=== PATIENT | male | born 1945 | race Caucasian/White ===

== ENCOUNTER 2019-09-14 16:41 | Observation (INO) ==
[2019-09-14 17:08] LABS: Microscopic, Urine URINE MICROSCOPIC (MICROSCOPIC)
[2019-09-14 17:10] LABS: Basophils % 0.7 % (0.1-2.0); Eosinophils % 0.7 % (0.1-12.0); Hematocrit 43.4 % (42.0-52.0); Hemoglobin 14.5 g/dL (14.1-18.0); Lymphocytes # 1.5 K/mm3 (0.7-4.5); Lymphocytes % 33.3 % (10-50); Mean Corpuscular HGB Conc 33.5 g/dL (31.8-35.4); Mean Corpuscular Volume 95.3 fl (80-94); Mean Platelet Volume 8.4 fl (7.4-10.4); Monocytes # 0.2 K/mm3 (0.1-1.0); Monocytes % 5.1 % (1.7-9.3); Neutrophils # 2.6 K/mm3 (1.8-7.8); Neutrophils % 60.2 % (37.0-80.0); Platelet Count 164 K/mm3 (142-424); Red Blood Count 4.55 M/mm3 (4.60-6.20); Red Cell Distribution Width 12.7 % (11.5-17.5); White Blood Count 4.4 K/mm3 (4.8-10.8)
[2019-09-14 17:11] LABS: Appearance,Urine CLEAR (Clear); Bilirubin,Urine Negative (Negative); Blood, Urine Negative (Negative); Color,Urine YELLOW (Yellow); Glucose,Urine (UA) 3+ (Negative); Ketones,Urine TRACE (Negative); Leukocyte Esterase,Urine Negative (Negative); Protein,Urine Negative (Negative); Specific Gravity, Urine 1.025 (1.005-1.030); Urobilinogen,Urine 0.2 EU/dl (0.2)
[2019-09-14 17:18] LABS: Acetone, Serum (Rapid) None Detected (None Detect)
[2019-09-14 17:23] LABS: Alanine Aminotransferase 53 U/L (12-78); Albumin Level 3.1 gm/dL (3.4-5.0); Albumin/Globulin Ratio 0.9 (1.1-1.8); Alkaline Phosphatase 71 U/L (46-116); Anion Gap 13.6 mEq/L (5-15); Aspartate Amino Transferase 30 U/L (15-37); Bilirubin,Total 0.8 mg/dL (0.2-1.0); Blood Urea Nitrogen 17 mg/dL (7-18); Calcium 8.8 mg/dL (8.5-10.1); Carbon Dioxide 27 mmol/L (21.0-32.0); Chloride 100 mmol/L (98-107); Globulin 3.6 gm/dl (1.3-3.2); Glucose 393 mg/dL (74-106); Sodium 136 mmol/L (136-145); Total Protein,Serum 6.7 gm/dL (6.4-8.2)
--- NOTE | 2019-09-14 17:58 | Emergency Department Note ---
ED Disposition Clinical Impression: Acute bronchospasm, Influenza B Acute bronchitis Qualifiers: Bronchitis organism: unspecified organism Qualified Code(s): J20.9 - Acute bronchitis, unspecified Hyperglycemia due to type 2 diabetes mellitus Qualifiers: Diabetes mellitus care home insulin use: without ferry terminal supervisor use Qualified Code(s): E11.65 - Type 2 diabetes mellitus with hyperglycemia Disposition: Admitted as Observation Condition on Discharge: Fair Referrals: Lucien Healy [Primary Care Provider] - - Critical Care Critical Care Time: No Attestation: On 09/14/19, the high probability of a clinically significant, sudden or life threatening deterioration of the following system(s) required my full and direct attention, intervention and personal management. The time I documented below is in addition to time spent performing reported procedures but includes the following listed in this critical care notation. Medical Decision Making - [place] Inquiry Pt receiving controlled substance: No Vital Signs: 09/14/19 16:53 Temperature 98 F Temperature Source Oral Pulse Rate [Left Radial] 120 H Respiratory Rate 18 Blood Pressure [Right Arm] 154/100 H Blood Pressure Mean [Right Arm] 118 Blood Pressure Position [Right Arm] Sitting 02 Sat by Pulse Oximetry 93 L Oxygen Delivery Method Room Air - Lab Data Lab Results 09/14/19 16:45: Urine Color Yellow, Urine Appearance Clear, Urine pH 5.0, Ur Specific [place] 1.025, Urine Protein Negative, Urine Glucose (UA) 3+, Urine Ketones Trace, Urine Blood Negative, Urine Nitrate Negative, Urine Bilirubin Negative, Urine Urobilinogen 0.2, Ur Leukocyte Esterase Negative, Urine RBC None, Urine WBC None, Ur Squamous Epith Cells None, Urine Bacteria None 09/14/19 16:55: WBC 4.4 L, RBC 4.55 L, Hgb 14.5, Hct 43.4, MCV 95.3 H, MCH 31.9 H, MCHC 33.5, RDW 12.7, Plt Count 164, MPV 8.4, Neut % (Auto) 60.2, Lymph % (Auto) 33.3, [place] % (Auto) 5.1, Eos % (Auto) 0.7, Baso % (Auto) 0.7, Neut # (Auto) 2.6, Lymph # (Auto) 1.5, [place] # (Auto) 0.2, Eos # (Auto) 0.0, Baso # (Auto) 0.0 09/14/19 16:55: Sodium 136, Potassium 4.6, Chloride 100, Carbon Dioxide 27, Anion Gap 13.6, BUN 17, Creatinine 1.19, Estimated Creat Clear 69, Estimated GFR 60, Est GFR ( Amer) 72, Glucose 393 H, Calcium 8.8, Total Bilirubin 0.8, AST 30, ALT 53, Alkaline Phosphatase 71, Troponin I < 0.02, Total Protein 6.7, Albumin 3.1 L, Globulin 3.6 H, Albumin/Globulin Ratio 0.9 L, Acetone Level None detected Result diagrams: 09/14/19 16:55 09/14/19 16:55 Orders (Tests/Meds): ED MEDICATIONS Generic Name Dose Route Start Last Admin Trade Name Freq PRN Reason Stop Dose Admin Sodium Chloride 1,000 mls @ 999 mls/hr 09/14/19 17:00 09/14/19 17:00 Sod Chlor 0.9% 1000ml Bag IV 09/14/19 18:00 999 mls/hr .Q1H1M LEON Administration Ceftriaxone Sodium 1 gm/ 50 mls @ 100 mls/hr 09/14/19 18:15 Sodium Chloride IV 09/28/19 18:14 Q24H LEON Protocol Azithromycin 500 mg/ Sodium 250 mls @ 250 mls/hr 09/14/19 18:15 Chloride IV 09/28/19 18:14 Q24H LEON Protocol Discontinued Medications Generic Name Dose Route Start Last Admin Trade Name Freq PRN Reason Stop Dose Admin Albuterol/Ipratropium 3 ml 09/14/19 18:12 Duoneb 3ml Neb IH 09/14/19 18:13 ONCE ONE Insulin Human Lispro 10 unit 09/14/19 18:14 Humalog 100 Units/Ml 3ml Vial (Ssi) SQ 09/14/19 18:15 ONCE ONE Methylprednisolone Sodium Succinate 125 mg 09/14/19 18:12 Solu-Medrol 125mg/2ml Vial IV 09/14/19 18:13 ONCE ONE ORDERS Category Date Time Status XR chest 2V Stat Exams 09/14/19 16:59 Taken Troponin I Q3H Lab 09/14/19 20:00 Ordered Troponin I Q3H Lab 09/14/19 23:00 Ordered Blood Culture Stat Micro 09/14/19 18:18 Ordered - ECG Data Tracing #1 EKG interpreted by Aaron Kinney MD: Rhythm: sinus tachycardia Rate: 101 [place]: normal Ectopy: none Conduction: normal ST Segment Changes: none T Wave Changes: none Q Waves: none Poor R wave progression Low voltage QRS Incomplete right bundle branch block Baseline artifact present, but I consider the EKG adequate for accurate interpretation. No prior EKGs available for comparison. - Physician Consults Physician Consulted: Alyce Guallpa NP for Dr. Garcia Time: 18:21 Reason -: Admission Comment/Response: Agrees to admit the patient to the hospital. We discussed the patient's clinical information, including history, exam, laboratory and radiology results and ED course. Per hospital procedure, I will write temporary bridge inpatient orders on the patient. Specific orders requested by the admitting physician: No specific requests General Adult HPI - General Chief complaint: Weakness Stated complaint: Dx w/flu, sugar is elevated Time Seen by Provider: 09/14/19 18:00 Mode of Arrival: Ambulatory Limitations: No Limitations Description of Symptoms (Recalled from ER Triage Doc. by RN): TO ED PER PVT CAR WITH C/O GENERALIZED WEAKNESS, COUGH PT STATES DX WITH FLU B 09/05 AND HAS HAD NO IMPROVEMENT SINCE. PT STATES BLOOD SUGARS HAVE BEEN 300-500 STATES PCP JUST RECENTLY PLACED HIM ON "PILLS" FOR DM - History of Present Illness HPI narrative: Complains of cough, congestion, shortness of breath, weakness, elevated blood sugar. States that he got sick on 09/04/2019. Saw his primary care doctor on 09/05/2019 and had a positive nasal swab for influenza B. Started on Tamiflu and steroids. He saw his family doctor the next Monday for routine physical. Prior to that he had been diagnosed with borderline diabetes, but his blood sugar on that date was greater than 500. He was started on metformin. Since then his flu symptoms have not improved. He last saw his primary care doctor on 09/09/2019 and had a chest x-ray that was negative. He is using an albuterol inhaler and Mucinex and still has shortness of breath congested cough, wheezing. His blood sugars still running in the 300s and 400s. - Related Data Allergies Allergy/AdvReac Type Severity Reaction Status Date / Time No Known Allergies Allergy Verified 09/14/19 16:58 [facility] History - Hepatitis A Screen Drug use history?: No High risk sexual behaviors?: No History of sexually transmitted infection?: No Currently employed?: No Childcare worker?: No Do you have indoor plumbing?: Yes Do you have electricity?: Yes Attestation statement:: This patient has been screened for Hepatitis A risk factors. I have reviewed the patient's past medical history: Yes - Social History Alcohol Intake: never Occupational Status: other ROS Obtained: Yes All systems reviewed & no additional complaints - Constitutional Constitutional: Reports fatigue, Reports weakness - ENT Ears, Nose, Mouth, and Throat: Reports nasal discharge - Cardiovascular Cardiovascular: Denies chest pain - Respiratory Respiratory: Yes cough, Yes dyspnea, Yes dyspnea on exertion - Gastrointestinal Gastrointestingal: Denies: abdominal pain, vomiting Physical Exam - General General appearance: alert, in no apparent distress - Head Head exam: atraumatic, normocephalic - Eye Eye exam: Present: normal appearance, EOMI - ENT ENT exam: Present: normal oropharynx, mucous membranes moist - Neck Neck exam: Present: normal inspection, trachea midline - Chest Chest inspection: Present: normal inspection, symmetric chest wall rise - Respiratory Respiratory exam: Present: wheezes (Diffuse) - Cardiovascular Cardiovascular exam: Present: normal rhythm, tachycardia, normal heart sounds - Abdominal Exam Abdominal exam: Present: soft, normal bowel sounds. Absent: distention, tenderness - Extremities Exam Extremities exam: Present: normal inspection - Neurological Exam Neurological exam: Present: alert, oriented X3 - Psychiatric Psychiatric exam: Present: normal affect, normal mood - Skin Skin exam: Present: warm, dry
--- NOTE | 2019-09-14 21:48 | History & Physical Report ---
*Admission Date: 09/14/19 *Chief complaint: soa *History of present illness: 74 yr old male presented to ed with complains of cough, congestion, shortness of breath, weakness, elevated blood sugar. States that he started to become sick on 09/04/2019, seen primary care doctor on 09/05/2019 and had a positive nasal swab for influenza B. Started on Tamiflu and steroids. Pt states he was told he was a borderline diabetic but when he had his physical a week after being dx with flu b his glucose was greater than 500. He was started on metformin by pcp. Pt states he seen his primary care doctor on 09/09/2019 and had a chest x- ray that was negative. He is using an albuterol inhaler and Mucinex and still has shortness of breath congested cough, wheezing. Pt admitted for shortness of breath, and hyperglycemia. [facility] History I have reviewed the patient's past medical history: Yes Medical History: Reports:: Diabetes Mellitus Type 2, Hyperlipidemia, Hypertension Denies:: Cancer, MRSA *Have you ever received a pneumonia vaccine?: Yes *Have you received a flu vaccine this season?: Yes Other Surgeries: Yes: Appendectomy Amputation: No - *Social History Educational Level: Completed High School Smoking Status: Never smoker Alcohol Intake: never *Occupational Status:: retired *Travel in the last 8 weeks: None Family Hx:: Cancer, Diabetes, Hyperlipidemia, Hypertension, Stroke Review of Systems - Constitutional Reports chills, Reports fatigue, Reports weakness, Denies body ache(s), Denies malaise - Eyes Denies change in vision - ENT Reports nasal congestion, Reports nasal discharge, Reports sinus pain - *Cardiovascular Reports shortness of breath with activity, Denies chest pain with activity - *Respiratory Reports change in phlegm color, Reports chest congestion, Reports cough, Reports shortness of breath, Reports shortness of breath with activity, Reports pain with cough - *Gastrointestinal Denies nausea - *Genitourinary Denies blood in urine, Denies urinary hesitancy - *Musculoskeletal Denies decreased muscle mass, Denies stiffness - Integumentary/Breasts Denies rash - *Neurologic Reports weakness, Denies abnormal movements - Psychiatric Denies anxiety - Endocrine Denies flushing - Hematologic/Lymphatic Denies enlarged lymph nodes - Allergic/Immunologic Denies lip swelling Meds Home Medications Medication Instructions Recorded Confirmed Type Albuterol Sulfate [Albuterol HFA 2 puffs IH Q4HP PRN 09/14/19 09/14/19 History Inhaler] Alfuzosin HCl [Alfuzosin HCl ER] 10 mg PO DAILY 09/14/19 09/14/19 History Amlodipine Bes/Olmesartan Med 1 tab PO DAILY 09/14/19 09/15/19 History [Amlodipine-Olmesartan 5-40 mg] Aspirin [Aspir 81] 81 mg PO DAILY 09/14/19 09/14/19 History Atorvastatin Calcium [Atorvastatin 10 mg PO HS 09/14/19 09/14/19 History 10mg Tab] Dutasteride 0.5 mg PO DAILY 09/14/19 09/14/19 History Fluticasone/Vilanterol [Breo 1 puff IH DAILY 09/14/19 09/15/19 History Ellipta 100-25 Mcg INH] Metformin HCl [Metformin HCl ER] 2,000 mg PO QPMWM 09/14/19 09/15/19 History guaiFENesin [Mucinex] 1,200 mg PO DAILYP PRN 09/14/19 09/15/19 History Desloratadine 5 mg PO DAILYP PRN 09/15/19 09/15/19 History Allergies Allergy/AdvReac Type Severity Reaction Status Date / Time No Known Allergies Allergy Verified 09/14/19 16:58 Exam Vital signs and Labs for Last 24 Hours: Temp Pulse Resp BP Pulse Ox 98 F 78 16 126/66 92 L 09/14/19 20:25 09/14/19 20:55 09/14/19 20:25 09/14/19 20:25 09/14/19 20:00 Laboratory Results - last 24 hr 09/14/19 16:45: Urine Color Yellow, Urine Appearance Clear, Urine pH 5.0, Ur Specific [place] 1.025, Urine Protein Negative, Urine Glucose (UA) 3+, Urine Ketones Trace, Urine Blood Negative, Urine Nitrate Negative, Urine Bilirubin Negative, Urine Urobilinogen 0.2, Ur Leukocyte Esterase Negative, Urine RBC None, Urine WBC None, Ur Squamous Epith Cells None, Urine Bacteria None 09/14/19 16:55: WBC 4.4 L, RBC 4.55 L, Hgb 14.5, Hct 43.4, MCV 95.3 H, MCH 31.9 H, MCHC 33.5, RDW 12.7, Plt Count 164, MPV 8.4, Neut % (Auto) 60.2, Lymph % (Auto) 33.3, [place] % (Auto) 5.1, Eos % (Auto) 0.7, Baso % (Auto) 0.7, Neut # (Auto) 2.6, Lymph # (Auto) 1.5, [place] # (Auto) 0.2, Eos # (Auto) 0.0, Baso # (Auto) 0.0 09/14/19 16:55: Sodium 136, Potassium 4.6, Chloride 100, Carbon Dioxide 27, Anion Gap 13.6, BUN 17, Creatinine 1.19, Estimated Creat Clear 69, Estimated GFR 60, Est GFR ( Amer) 72, Glucose 393 H, Calcium 8.8, Total Bilirubin 0.8, AST 30, ALT 53, Alkaline Phosphatase 71, Troponin I < 0.02, Total Protein 6.7, Albumin 3.1 L, Globulin 3.6 H, Albumin/Globulin Ratio 0.9 L, Acetone Level None detected 09/14/19 19:40: Troponin I < 0.02 09/14/19 20:49: POC Glucose 260 H I & O for Last 24 hours: Intake & Output 09/12/19 09/13/19 09/14/19 09/15/19 11:59 11:59 11:59 11:59 Weight 201 lb 3 oz - Constitutional no acute distress, thin - *Routine HEENT Exam Head: Present: normocephalic Eye: Present: PERRL ENT: Present: mucous membranes moist - *Routine Neck Exam Present: supple. Absent: lymphadenopathy - *Routine Respiratory Exam Present: rhonchi, wheezes - *Routine Cardiovascular Exam Present: RRR - *Routine Abdominal Exam Present: soft, normoactive bowel sounds. Absent: tenderness - *Routine Extremities Exam Present: full ROM, pulses intact, normal capillary refill - *Routine Skin Exam Present: intact, warm. Absent: rash - *Routine Neurological Exam Present: alert, oriented X3 - Routine Psychiatric Exam Present: normal affect Assessment and Plan (1) Acute bronchitis Current visit: Yes Status: Acute Qualifiers: Bronchitis organism: unspecified organism Qualified Code(s): J20.9 - Acute bronchitis, unspecified Category: Medical Code(s): J20.9 - Acute bronchitis, unspecified steroids and neb treatments antibiotics (2) Acute bronchospasm Current visit: Yes Status: Acute Category: Medical Code(s): J98.01 - Acute bronchospasm (3) Hyperglycemia due to type 2 diabetes mellitus Current visit: Yes Status: Acute Qualifiers: Diabetes mellitus enrollment management manager insulin use: without custodial use Qualified Code(s): E11.65 - Type 2 diabetes mellitus with hyperglycemia Category: Medical Code(s): E11.65 - Type 2 diabetes mellitus with hyperglycemia sliding scale insulin while on steroids (4) Influenza B Current visit: Yes Status: Acute Category: Medical Code(s): J10.1 - Influenza due to other identified influenza virus with other respiratory manifestations - Assessment and plan all Dx Assessment and Plan for all problems:: иван to round later today, all orders per иван
[2019-09-15 07:19] LABS: Anion Gap 14.1 mEq/L (5-15); Calcium 8.3 mg/dL (8.5-10.1)
--- NOTE | 2019-09-15 08:12 | Pharmacy Consult Notes ---
[facility] Pharmacy VTE Monitoring - Patient Demographics Admission date: 09/14/19 Report Date: 09/15/19 Time: 08:12 Allergies/Adverse Reactions: Patient Allergies No Known Allergies Allergy (Verified 09/14/19 16:58) Height: 1.78 m Weight: 91.257 kg Patient Problems: Current Active Problems Acute bronchospasm (Acute) Acute bronchitis (Acute) Influenza B (Acute) Hyperglycemia due to type 2 diabetes mellitus (Acute) - VTE Risk Labs: VTE Related Lab Results Hgb 14.5 g/dL (14.1-18.0) 09/14/19 16:55 Hct 43.4 % (42.0-52.0) 09/14/19 16:55 Plt Count 164 K/mm3 (142-424) 09/14/19 16:55 BUN 15 mg/dL (7-18) 09/15/19 06:30 Creatinine 1.21 mg/dL (0.70-1.30) 09/15/19 06:30 Estimated Creat Clear 68 mL/min (50-200) 09/15/19 06:30 VTE Score: 1 VTE Risk Level: Very Low Risk - Prophylaxis VTE Prophylaxis Ordered?: Yes Types of VTE Prophylaxis: TEDS Knee High Location of Applied Device: Bilateral Lower Extremeties - VTE Diagnosis Confirmed Treatment or plan recommended: Continue Current Treatment
--- NOTE | 2019-09-15 10:58 | Progress Note ---
Internal Medicine - PN: Subj *Date: 09/16/19 *Time: 09:14 Interval history: doing better but still weak -discussed home meds Exam Vital signs and Labs for Last 24 Hours: Temp Pulse Resp BP Pulse Ox 98.6 F 77 17 125/77 95 09/15/19 07:24 09/15/19 10:23 09/15/19 07:24 09/15/19 07:24 09/15/19 07:24 Laboratory Results - last 24 hr 09/14/19 16:45: Urine Color Yellow, Urine Appearance Clear, Urine pH 5.0, Ur Specific [place] 1.025, Urine Protein Negative, Urine Glucose (UA) 3+, Urine Ketones Trace, Urine Blood Negative, Urine Nitrate Negative, Urine Bilirubin Negative, Urine Urobilinogen 0.2, Ur Leukocyte Esterase Negative, Urine RBC None, Urine WBC None, Ur Squamous Epith Cells None, Urine Bacteria None 09/14/19 16:55: WBC 4.4 L, RBC 4.55 L, Hgb 14.5, Hct 43.4, MCV 95.3 H, MCH 31.9 H, MCHC 33.5, RDW 12.7, Plt Count 164, MPV 8.4, Neut % (Auto) 60.2, Lymph % (Auto) 33.3, [place] % (Auto) 5.1, Eos % (Auto) 0.7, Baso % (Auto) 0.7, Neut # (Auto) 2.6, Lymph # (Auto) 1.5, [place] # (Auto) 0.2, Eos # (Auto) 0.0, Baso # (Auto) 0.0 09/14/19 16:55: Sodium 136, Potassium 4.6, Chloride 100, Carbon Dioxide 27, Anion Gap 13.6, BUN 17, Creatinine 1.19, Estimated Creat Clear 69, Estimated GFR 60, Est GFR ( Amer) 72, Glucose 393 H, Calcium 8.8, Total Bilirubin 0.8, AST 30, ALT 53, Alkaline Phosphatase 71, Troponin I < 0.02, Total Protein 6.7, Albumin 3.1 L, Globulin 3.6 H, Albumin/Globulin Ratio 0.9 L, Acetone Level None detected 09/14/19 19:40: Troponin I < 0.02 09/14/19 20:49: POC Glucose 260 H 09/15/19 06:05: POC Glucose 324 H* 09/15/19 06:30: Sodium 137, Potassium 4.1, Chloride 101, Carbon Dioxide 26, Anion Gap 14.1, BUN 15, Creatinine 1.21, Estimated Creat Clear 68, Estimated GFR 58 L, Est GFR ( Amer) 71, Glucose 337 H, Calcium 8.3 L I & O for Last 24 hours: Intake & Output 09/12/19 09/13/19 09/14/19 09/15/19 11:59 11:59 11:59 11:59 Intake Total 683 / 683 Balance 683 / 683 Weight 201 lb 3 oz Microbiology Reports for the Last 24 Hours: Microbiology 09/14/19 21:20 Sputum - Expectorated Sputum Gram Stain - Final 09/14/19 21:20 Sputum - Expectorated Sputum Sputum Culture - Preliminary - Constitutional no acute distress - *Routine HEENT Exam Head: Present: normocephalic Eye: Present: EOMI, PERRL ENT: Present: mucous membranes dry - *Routine Neck Exam Present: supple - *Routine Respiratory Exam Present: rhonchi - *Routine Cardiovascular Exam Present: RRR - *Routine Abdominal Exam Present: soft - *Routine Extremities Exam Absent: tenderness - *Routine Skin Exam Present: intact - *Routine Neurological Exam Present: alert, CN II-XII intact - Routine Psychiatric Exam Present: normal affect Assessment and Plan (1) Acute bronchitis Current visit: Yes Status: Acute Qualifiers: Bronchitis organism: unspecified organism Qualified Code(s): J20.9 - Acute bronchitis, unspecified Category: Medical Code(s): J20.9 - Acute bronchitis, unspecified (2) Hyperglycemia due to type 2 diabetes mellitus Problem details: restart home meds Current visit: Yes Status: Acute Qualifiers: Diabetes mellitus longterm insulin use: without termite inspector use Qualified Code(s): E11.65 - Type 2 diabetes mellitus with hyperglycemia Category: Medical Code(s): E11.65 - Type 2 diabetes mellitus with hyperglycemia
[2019-09-16 08:35] LABS: Basophils % 0.2 % (0.1-2.0); Eosinophils % 0.1 % (0.1-12.0); Hematocrit 38.7 % (42.0-52.0); Hemoglobin 12.5 g/dL (14.1-18.0); Lymphocytes # 1.4 K/mm3 (0.7-4.5); Lymphocytes % 18.1 % (10-50); Mean Corpuscular HGB Conc 32.4 g/dL (31.8-35.4); Mean Corpuscular Volume 96.2 fl (80-94); Mean Platelet Volume 9.6 fl (7.4-10.4); Monocytes # 0.2 K/mm3 (0.1-1.0); Monocytes % 3.1 % (1.7-9.3); Neutrophils % 78.5 % (37.0-80.0); Platelet Count 177 K/mm3 (142-424); Red Blood Count 4.02 M/mm3 (4.60-6.20); White Blood Count 7.6 K/mm3 (4.8-10.8)
[2019-09-16 08:49] LABS: Albumin Level 2.5 gm/dL (3.4-5.0); Albumin/Globulin Ratio 0.8 (1.1-1.8); Anion Gap 11.1 mEq/L (5-15); Bilirubin,Total 0.4 mg/dL (0.2-1.0); Calcium 8.1 mg/dL (8.5-10.1); Total Protein,Serum 5.5 gm/dL (6.4-8.2)
--- NOTE | 2019-09-16 09:02 | Discharge Summary ---
General - General Admission date:: 09/14/19 Discharge date: 09/16/19 HPI HPI: 74 yr old male presented to ed with complains of cough, congestion, shortness of breath, weakness, elevated blood sugar. States that he started to become sick on 09/04/2019, seen primary care doctor on 09/05/2019 and had a positive nasal swab for influenza B. Started on Tamiflu and steroids. Pt states he was told he was a borderline diabetic but when he had his physical a week after being dx with flu b his glucose was greater than 500. He was started on metformin by pcp. Pt states he seen his primary care doctor on 09/09/2019 and had a chest x- ray that was negative. He is using an albuterol inhaler and Mucinex and still has shortness of breath congested cough, wheezing. Pt admitted for shortness of breath, and hyperglycemia. Hospital Course Hospital Course: Laboratory Results - last 24 hr 09/15/19 11:57: POC Glucose 394 H* 09/15/19 16:41: POC Glucose 358 H* 09/15/19 21:31: POC Glucose 263 H 09/16/19 05:59: POC Glucose 229 H 09/16/19 08:25: WBC 7.6 D, RBC 4.02 L, Hgb 12.5 L, Hct 38.7 L, MCV 96.2 H, MCH 31.1, MCHC 32.4, RDW 13.0, Plt Count 177, MPV 9.6, Neut % (Auto) 78.5, Lymph % (Auto) 18.1, Kemper % (Auto) 3.1, Eos % (Auto) 0.1, Baso % (Auto) 0.2, Neut # (Auto) 6.0, Lymph # (Auto) 1.4, Kemper # (Auto) 0.2, Eos # (Auto) 0.0, Baso # (Auto) 0.0 09/16/19 08:25: Sodium 140, Potassium 4.1, Chloride 104, Carbon Dioxide 29, Anion Gap 11.1, BUN 17, Creatinine 1.00, Estimated Creat Clear 83, Estimated GFR 73, Est GFR ( Amer) 88 D, Glucose 251 H, Calcium 8.1 L, Total Bilirubin 0.4, AST 20 D, ALT 43, Alkaline Phosphatase 49, Total Protein 5.5 L, Albumin 2.5 L, Globulin 3.0, Albumin/Globulin Ratio 0.8 L Microbiology 09/14/19 18:25 Blood Culture - Preliminary Blood 09/14/19 18:25 Blood Culture - Preliminary Blood 09/14/19 21:20 Gram Stain - Final Sputum - Expectorated Sputum Sputum Culture - Preliminary Vital Signs Temp Pulse Pulse Resp BP Pulse Ox 09/16/19 08:00 97.9 F 90 18 114/61 96 09/16/19 06:15 70 92 L 09/16/19 04:00 98.1 F 79 19 127/75 96 chest x ray:IMPRESSION: No acute finding. There is some mild nodularity of the right hilum inferiorly as described above. Follow-up suggested to confirm stability will dc home on antibiotics/breo and follow up with dr healy this week. Objective Vital signs: Temp Pulse Resp BP Pulse Ox 97.9 F 90 18 114/61 96 09/16/19 08:00 09/16/19 08:00 09/16/19 08:00 09/16/19 08:00 09/16/19 08:00 no acute distress - *Routine HEENT Exam Head: Present: normocephalic Eye: Present: PERRL ENT: Present: mucous membranes moist - *Routine Respiratory Exam Present: wheezes - *Routine Cardiovascular Exam Present: RRR - *Routine Abdominal Exam Present: soft, normoactive bowel sounds. Absent: tenderness - *Routine Extremities Exam Present: full ROM - *Routine Skin Exam Present: intact - *Routine Neurological Exam Present: alert, oriented X3 - Routine Psychiatric Exam Present: normal affect Results Labs on day of discharge: Labs from last 24 hours 09/16/19 09/16/19 09/16/19 08:25 08:25 05:59 WBC 7.6 D RBC 4.02 L Hgb 12.5 L Hct 38.7 L MCV 96.2 H MCH 31.1 MCHC 32.4 RDW 13.0 Plt Count 177 MPV 9.6 Neut % (Auto) 78.5 Lymph % (Auto) 18.1 Kemper % (Auto) 3.1 Eos % (Auto) 0.1 Baso % (Auto) 0.2 Neut # (Auto) 6.0 Lymph # (Auto) 1.4 Kemper # (Auto) 0.2 Eos # (Auto) 0.0 Baso # (Auto) 0.0 Sodium 140 Potassium 4.1 Chloride 104 Carbon Dioxide 29 Anion Gap 11.1 BUN 17 Creatinine 1.00 Estimated Creat Clear 83 Estimated GFR 73 Est GFR ( Amer) 88 D Glucose 251 H POC Glucose 229 H Calcium 8.1 L Total Bilirubin 0.4 AST 20 D ALT 43 Alkaline Phosphatase 49 Total Protein 5.5 L Albumin 2.5 L Globulin 3.0 Albumin/Globulin Ratio 0.8 L 09/15/19 09/15/19 09/15/19 21:31 16:41 11:57 WBC RBC Hgb Hct MCV MCH MCHC RDW Plt Count MPV Neut % (Auto) Lymph % (Auto) Kemper % (Auto) Eos % (Auto) Baso % (Auto) Neut # (Auto) Lymph # (Auto) Kemper # (Auto) Eos # (Auto) Baso # (Auto) Sodium Potassium Chloride Carbon Dioxide Anion Gap BUN Creatinine Estimated Creat Clear Estimated GFR Est GFR ( Amer) Glucose POC Glucose 263 H 358 H* 394 H* Calcium Total Bilirubin AST ALT Alkaline Phosphatase Total Protein Albumin Globulin Albumin/Globulin Ratio Preliminary micro results at discharge 09/14/19 18:25 Blood Culture - Preliminary Blood 09/14/19 18:25 Blood Culture - Preliminary Blood 09/14/19 21:20 Sputum Culture - Preliminary Sputum - Expectorated Sputum DS: Diagnosis - Discharge Diagnosis (1) Acute bronchitis Status: Acute (2) Acute bronchospasm Status: Acute (3) Hyperglycemia due to type 2 diabetes mellitus Status: Acute Problem details: restart home meds (4) Influenza B Status: Acute Discharge Plan - Patient Discharge Instructions ACTIVITY: Continue current activity DIET: continue same diet Patient Instructions: How to Take Care of Your Feet If You Have Diabetes, 'Diet Plate' May Help People With Diabetes Lose Weight, Reducing Your Risk of Heart Disease When You Have Diabetes, Influenza, Type 2 Diabetes, Acute Bronchitis, DI for Acute Bronchitis, DI for Diabetes Type 2, DI for Influenza -- Adult, Taking Care of Your Diabetes When You Are Sick, DI for Hyperglycemia -- Adult - Follow up Plan Follow up with: Lucien Healy [Primary Care Provider] - Disposition: Home, Self-[facility]ci Medications: Home Medications Medication Instructions Recorded Confirmed Type Albuterol Sulfate [Albuterol HFA 2 puffs IH Q4HP PRN 09/14/19 09/14/19 History Inhaler] Alfuzosin HCl [Alfuzosin HCl ER] 10 mg PO DAILY 09/14/19 09/14/19 History Amlodipine Bes/Olmesartan Med 1 tab PO DAILY 09/14/19 09/15/19 History [Amlodipine-Olmesartan 5-40 mg] Aspirin [Aspir 81] 81 mg PO DAILY 09/14/19 09/14/19 History Atorvastatin Calcium [Atorvastatin 10 mg PO HS 09/14/19 09/14/19 History 10mg Tab] Dutasteride 0.5 mg PO DAILY 09/14/19 09/14/19 History Fluticasone/Vilanterol [Breo 1 puff IH DAILY 09/14/19 09/15/19 History Ellipta 100-25 Mcg INH] Metformin HCl [Metformin HCl ER] 2,000 mg PO QPMWM 09/14/19 09/15/19 History guaiFENesin [Mucinex] 1,200 mg PO DAILYP PRN 09/14/19 09/15/19 History Desloratadine 5 mg PO DAILYP PRN 09/15/19 09/15/19 History Azithromycin [Zithromax 250mg 250 mg PO DIRECTED #6 tab 09/16/19 Rx tab] Prescriptions/Medication Reconciliation: New Azithromycin [Zithromax 250mg tab] 250 mg PO DIRECTED #6 tab Continued Albuterol Sulfate [Albuterol HFA Inhaler] 2 puffs IH Q4HP PRN PRN Reason: Shortness Of Breath Or Wheezing Metformin HCl [Metformin HCl ER] 2,000 mg PO QPMWM Dutasteride 0.5 mg PO DAILY Aspirin [Aspir 81] 81 mg PO DAILY Amlodipine Bes/Olmesartan Med [Amlodipine-Olmesartan 5-40 mg] 1 tab PO DAILY Fluticasone/Vilanterol [Breo Ellipta 100-25 Mcg INH] 1 puff IH DAILY Atorvastatin Calcium [Atorvastatin 10mg Tab] 10 mg PO HS Alfuzosin HCl [Alfuzosin HCl ER] 10 mg PO DAILY guaiFENesin [Mucinex] 1,200 mg PO DAILYP PRN PRN Reason: Congestion Desloratadine 5 mg PO DAILYP PRN PRN Reason: ALLERGIES - Problem Reconciliation Problems Reviewed?: Yes
--- NOTE | 2019-09-16 13:58 | Electrocardiograph Report ---
APPROVED REPORT Exam: Resting ECG HR:0 bpm ECG Measurements Heart Rate 0 AXES QRSd QRS 0 QT T0 <Conclusion> No QRS complexes found, no ECG analysis possible Electronically signed by : Minh Orozco, 09/16/2019 13:58:19
== END 2019-09-16 10:00 | disposition home or self-care (01) ==
LOC: 2ND 16:41 → ER 16:41 → 2ND 20:26
PROVIDERS: ADMIT Emergency Medicine; ATTEND Emergency Medicine
CPT/HCPCS: 36415; 71020; 71046; 80048; 80053; 81001; 82009; 82962; 84484; 85025; 87040; 87070; 87077; 87186; 87205; 93005; 94640; 94761; 96365; 99284; G0378; J0456